=== PATIENT | male | born 1975 | race Caucasian/White ===

== ENCOUNTER → 2017-02-01 | Outpatient (CLI) | payer BC, OTHER | LOC: CIMAGING 07:52 | PROVIDERS: ATTEND Family Medicine | DX: R10.11 Right upper quadrant pain (principal); R11.0 Nausea | CPT/HCPCS: 76700-PO ==

== ENCOUNTER → 2018-11-07 | Outpatient (CLI) | payer OTHER | LOC: CIMAGING 11:38 | PROVIDERS: ATTEND Family Medicine | DX: M25.561 Pain in right knee (principal) | CPT/HCPCS: 73562-PO ==

== ENCOUNTER → 2018-11-20 | Outpatient (CLI) | payer OTHER | LOC: EMCIMAGING 09:24 ==